=== PATIENT | female | born 1955 | race Caucasian/White ===

== ENCOUNTER 2017-09-28 10:41 | Day surgery (SDC) | payer OTHER ==
[2017-09-28] MEDS ORDERED: LACTATED RINGERS 1,000 ML IV ONE (10:47)
[2017-09-28] MEDS ORDERED: PROPOFOL 200 MG/20 ML VIAL IVP ONE (13:10)
[2017-09-28 13:14] VITALS: BP 103/62
== END 2017-09-28 10:42 | disposition home or self-care (01) ==
LOC: SDS 10:41
PROVIDERS: ATTEND Surgery
PROC: 0DBE8ZX Excision of Large Intestine, Via Natural or Artificial Opening Endoscopic, Diagnostic (ICD-10-PCS; principal; 2017-09-28 12:00)
DX: Z12.11 Encounter for screening for malignant neoplasm of colon (principal); K57.30 Diverticulosis of large intestine without perforation or abscess without bleeding; K51.40 Inflammatory polyps of colon without complications; I10 Essential (primary) hypertension; Z86.718 Personal history of other venous thrombosis and embolism; Z87.891 Personal history of nicotine dependence
CPT/HCPCS: 45380; J7120

== ENCOUNTER 2018-05-14 00:22 | Outpatient (CLI) | payer OTHER | END 2018-05-14 00:23 | disposition critical access hospital (66) | LOC: EMS 00:22 | PROVIDERS: ATTEND Surgery | DX: R56.9 Unspecified convulsions (principal) | CPT/HCPCS: A0425; A0429 ==

== ENCOUNTER 2018-05-14 00:48 | Emergency (ER) | payer OTHER ==
[2018-05-14] MEDS ORDERED: LORazepam 2 MG/ML VIAL IVP STA ×2 (00:56→01:34)
[2018-05-14 01:24] LABS: BASOPHILS # (AUTO) 0.1 10^3/uL (0.0-0.1); BASOPHILS % (AUTO) 1.3 %; EOSINOPHILS # (AUTO) 0.3 10^3/uL (0.0-0.7); EOSINOPHILS % (AUTO) 4.9 %; LYMPHOCYTES % (AUTO) 45.1 %; MEAN CORPUSCULAR HEMOGLOBIN 30.7 pg (27.0-31.0); MEAN CORPUSCULAR HGB CONC 34.5 g/dL (32.0-36.0); MEAN CORPUSCULAR VOLUME 89.1 fL (81.0-99.0); MEAN PLATELET VOLUME 7.3 fL (7.9-10.8); MONOCYTES # (AUTO) 0.5 10^3/uL (0.0-1.0); NEUTROPHILS # (AUTO) 2.8 10^3/uL (1.5-6.6); NEUTROPHILS % (AUTO) 41.7 %; PLT - PLATELET COUNT 319 10^3/uL (130-450); RED BLOOD COUNT 3.91 10^6/uL (4.20-5.40); RED CELL DISTRIBUTION WIDTH 13.5 % (12.0-15.0); WHITE BLOOD COUNT 6.7 x10^3/uL (4.8-10.8)
[2018-05-14] MEDS ORDERED: KETOROLAC 30 MG/ML VIAL IVP STA (01:34)
[2018-05-14] MEDS ORDERED: DEXAMETHASONE 10 MG/ML VIAL IVP STA (01:34)
[2018-05-14 01:37] LABS: ALBUMIN 3.6 g/dL (3.2-5.5); ALBUMIN/GLOBULIN RATIO 1.3 (1.0-2.2); BILIRUBIN,TOTAL 0.5 mg/dL (0.2-1.0); CALCIUM 8.8 mg/dL (8.5-10.3); CREATININE 0.8 mg/dL (0.4-1.0); TOTAL PROTEIN 6.4 g/dL (6.7-8.2)
[2018-05-14] MEDS ORDERED: SODIUM CHLORIDE 0.9% 500 ML IV ONE (02:42)
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
[2018-05-14] MEDS ORDERED: oxyCODONE 5 MG TABLET PO STA (06:19)
[2018-05-14 07:02] LABS: MUDS CUTOFF CONCENTRATIONS CUTOFF CONC BELOW:
[2018-05-14 07:22] LABS: BILIRUBIN,URINE NEGATIVE (NEGATIVE); GLUCOSE, URINE (UA) NEGATIVE (NEGATIVE); KETONES,URINE (UA) NEGATIVE (NEGATIVE); LEUKOCYTE ESTERASE, URINE NEGATIVE (NEGATIVE); NITRITE,URINE NEGATIVE (NEGATIVE); OCCULT BLOOD,URINE NEGATIVE (NEGATIVE); PROTEIN,URINE NEGATIVE (NEGATIVE); UROBILINOGEN,URINE 0.2 (NORMAL) E.U./dL (NORMAL)
[2018-05-14 07:25] LABS: CLARITY,URINE CLEAR (CLEAR)
[2018-05-14 07:27] LABS: AMPHETAMINE SCREEN,URINE NEGATIVE (NEGATIVE); BENZODIAZEPINES SCREEN, URINE POSITIVE (NEGATIVE); COCAINE SCREEN URINE NEGATIVE (NEGATIVE); METHADONE SCREEN, URINE NEGATIVE (NEGATIVE); METHAMPHETAMINES SCREEN, URINE NEGATIVE (NEGATIVE); OPIATE SCREEN, URINE NEGATIVE (NEGATIVE); OXYCODONE SCREEN, URINE POSITIVE (NEGATIVE); PROPOXYPHENE SCREEN, URINE NEGATIVE (NEGATIVE); TRICYCLIC ANTIDEPRESSANT,URINE NEGATIVE (NEGATIVE)
[2018-05-14 14:50] VITALS: BP 138/79
== END 2018-05-14 14:52 | disposition home or self-care (01) ==
LOC: EDUNIT# → ED 00:48
DX: R25.8 Other abnormal involuntary movements (principal); F43.9 Reaction to severe stress, unspecified; M54.9 Dorsalgia, unspecified; M25.551 Pain in right hip; Z79.899 Other long term (current) drug therapy
CPT/HCPCS: 36415; 80053; 80306; 81003; 82550; 82553; 83690; 84484; 85025; 96361; 96374; 96375; 99283; 99284; A9270; J2060; 81001; 87086

== ENCOUNTER 2018-08-10 19:15 | Emergency (ER) | payer OTHER ==
[2018-08-10] MEDS ORDERED: ONDANSETRON ODT 4 MG TABLET TL STA (19:41)
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
--- NOTE | 2018-08-10 20:17 | CT Report ---
Reason: head injury Procedure Date: 08/10/2018 Accession Number: [id number] / [id number] Procedure: CT - HEAD WO CPT Code: FULL RESULT: EXAM: CT HEAD EXAM DATE: 08/10/2018 07:59 PM. CLINICAL HISTORY: Head injury. COMPARISON: HEAD W/O 03/19/2016 6:31 AM. TECHNIQUE: Multiaxial CT images were obtained from the foramen magnum to the vertex. Reformats: Sagittal and coronal. IV contrast: None. In accordance with CT protocol optimization, one or more of the following dose reduction techniques were utilized for this exam: automated exposure control, adjustment of mA and/or KV based on patient size, or use of iterative reconstructive technique. FINDINGS: Parenchyma: No intraparenchymal hemorrhage. No evidence of mass, midline shift, or CT findings of infarction. Carter-white differentiation is distinct. Extraaxial Spaces: Normal for age. No subdural or epidural collections identified. Ventricles: Normal in size and position. Sinuses and Orbits: Imaged paranasal sinuses, orbits, and mastoids show no significant abnormality. Bones: No evidence of fracture or calvarial defect. Other: None. IMPRESSION: No acute intracranial CT abnormality. [facility]
[2018-08-10 20:32] VITALS: BP 161/98
== END 2018-08-10 20:35 | disposition home or self-care (01) ==
LOC: ED 19:15
DX: S09.90XA Unspecified injury of head, initial encounter (principal); W22.8XXA Striking against or struck by other objects, initial encounter; Y93.E9 Activity, other interior property and clothing maintenance; Y92.009 Unspecified place in unspecified non-institutional (private) residence as the place of occurrence of the external cause; I10 Essential (primary) hypertension
CPT/HCPCS: 70450; 99283; Q0162

== ENCOUNTER 2019-01-06 03:06 | Outpatient (CLI) | payer OTHER | END 2019-01-06 03:07 | disposition EMS.NT | LOC: EMS 03:06 | PROVIDERS: ATTEND Surgery | DX: Z03.89 Encounter for observation for other suspected diseases and conditions ruled out (principal) ==

== ENCOUNTER 2019-09-08 09:35 | Emergency (ER) | payer MEDICARE ==
[2019-09-08] MEDS ORDERED: TETANUS/DIPHTHERIA/PERTUSSIS 0.5 ML SYRINGE IM ONE (10:02)
[2019-09-08] MEDS ORDERED: SODIUM CHLORIDE 0.9% 1,000 ML IV ONE (10:02)
--- NOTE | 2019-09-08 10:17 | ED Physician Documentation ---
History of Present Illness - Stated complaint Stated Complaint: FAINTING - Chief complaint Chief Complaint: Neuro - History obtained from History obtained from: Patient - Additonal information Additional information: Patient comes emergency department complaining of an episode of "blacking out" on the toilet early this morning. Patient states she got up to go to the bathroom in the night, and remember sitting down on the toilet. However, she states that she does not remember what happened after that until feeling as though she was waking up again and still sitting on the toilet. Patient states she did not have any other symptoms at the time. No chest pain, shortness of breath, dizziness, focal neurologic deficits, or palpitations. She states that she got up and walked back to bed and was able to sleep through the rest of the night. She states that when she got up, she decided to come here to get "checked out". She states 1 of the main reason she is here is that she had another such loss of consciousness about a week ago and apparently had a fall at that time. She states that she sustained a laceration to her left buttock which she would like to have Steri-Stripped. Patient does not remember any details of that fall. She states that she has been having these brief syncopal episodes for about the last year. She is not exactly sure how long they last, but does not think that they last more than some seconds. She states that she has had multiple falls because of this. She denies having seen her primary care physician about this. She states that she has seen a neurologist a couple of times regarding neck pain, but has not discussed the syncope with the neurologist, either. As such, she has had no work-up for this. Patient states she has a history of hypertension but no cardiac issues. She has no history of CVA that she knows of. Records reveal that she was admitted several years ago for chest pain and thought to possibly have a PE. She was placed on Xarelto at the end of her inpatient stay and was advised to get a follow-up second opinion, as it had not been entirely clear whether the patient had PEs on her CT, and her d-dimer and lower extremity ultrasounds were negative. Patient states emphatically that she did not have a PE but does not remember following up. She states she is no longer on any anticoagulants. Patient states that other than her buttock feeling sore, she is feeling fine. No neck pain or headache. She did not fall off of the toilet. The patient denies any recent fever or other illness. No cough or sore throat. No new medications. Patient does note that she drinks alcohol approximately 3 times a week. This consists of 2 shots of vodka. She does not think she has had any blackouts in relation to the alcohol use, though she does note that she has the syncopal episodes roughly 3 times a week, as well. Patient denies drinking any alcohol yesterday. No other complaints at this time. Review of Systems Ten Systems: 10 systems reviewed and negative Constitutional: reports: Reviewed and negative Eyes: reports: Reviewed and negative Ears: reports: Reviewed and negative Nose: reports: Reviewed and negative Throat: reports: Reviewed and negative Cardiac: reports: Reviewed and negative Respiratory: reports: Reviewed and negative GI: reports: Reviewed and negative : reports: Reviewed and negative Skin: reports: Laceration (s) Musculoskeletal: reports: Reviewed and negative Neurologic: reports: Syncope Psychiatric: reports: Reviewed and negative Endocrine: reports: Reviewed and negative Immunocompromised: reports: Reviewed and negative PD PAST MEDICAL HISTORY - Past Medical History Cardiovascular: Hypertension Respiratory: None Neuro: Head injury, Tremors, Other Endocrine/Autoimmune: None GI: Other : None HEENT: None Psych: Anxiety, Bipolar disorder, Panic attacks, Post traumatic stress disorder, Claustrophobia Musculoskeletal: Osteoarthritis, Chronic back pain, Other Derm: None - Past Surgical History Past Surgical History: Yes General: Appendectomy Ortho: Spine 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 - Present Medications Home Medications: Ambulatory Orders Medication Instructions Recorded Confirmed Diclofenac Sodium Dr [Voltaren] 75 mg PO Q12H 10/20/14 09/28/17 Propranolol ER [Inderal LA] 120 mg PO BID 10/20/14 09/28/17 oxyCODONE [Roxicodone] 10 mg PO Q6H PRN 10/20/14 09/28/17 raNITIdine [Zantac] 150 mg PO Q12H 10/20/14 09/28/17 Baclofen 10 mg PO DAILY 09/28/17 09/28/17 Etodolac 200 mg PO DAILY 09/28/17 09/28/17 Melatonin 25 mg PO DAILY 09/28/17 09/28/17 Prazosin [Minipress] 1 mg PO DAILY 09/28/17 09/28/17 clonazePAM [KlonoPIN] 0.5 mg PO ONCE 09/28/17 09/28/17 Ondansetron Odt [Zofran] 4 mg TL Q6H PRN #10 tablet 08/10/18 Levofloxacin [Levaquin] 500 mg PO DAILY 7 Days #7 tablet 09/08/19 - Allergies Allergies/Adverse Reactions: Allergies Allergy/AdvReac Type Severity Reaction Status Date / Time Penicillins Allergy Hives Verified 09/08/19 09:41 sulfamethoxazole Allergy Hives Verified 09/08/19 09:41 [From Bactrim] trimethoprim [From Bactrim] Allergy Hives Verified 09/08/19 09:41 - Social History Does the pt smoke?: No Smoking Status: Never smoker Does the pt drink ETOH?: Yes Does the pt have substance abuse?: No - Immunizations Immunizations are current?: Yes Immunizations: TDAP >10years/unknown - POLST Patient has POLST: No PD ED PE NORMAL - Vitals Vital signs reviewed: Yes - General General: No acute distress, Well developed/nourished, Other (Patient is oriented to self, place, and time, but seems somewhat confused When asked certain questions about recent or past history.) - HEENT HEENT: Atraumatic, PERRL, EOMI, Moist mucous membranes - Neck Neck: Supple, no meningeal sign - Cardiac Cardiac: RRR, No murmur - Respiratory Respiratory: No respiratory distress, Clear bilaterally - Abdomen Abdomen: Soft, Non tender, Non distended - Derm Derm: Warm and dry, Other (Patient has multiple contusions about her lower back and buttocks. She has a approximately 5 cm, flap laceration involving her mid left buttock, which contains some granulation tissue. The laceration is deepened through the adipose tissue, with tracking of the inner wound along the adiposemuscle plane. No muscular laceration is noted. There is no active bleeding. No foreign bodies are noted. There is both contusion and abrasion surrounding the wound, but no evidence of infection. 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 She has clear articulation. She is able to answer most questions clearly, though seems occasionally confused, as noted above) - Psych Psych: Normal mood, Normal affect Results - Vitals Vitals: Vital Signs - 24 hr 09/08/19 09/08/19 09/08/19 09:41 10:40 12:00 Temperature 36.8 C Heart Rate 63 65 63 Respiratory 18 10 L 14 Rate Blood Pressure 166/100 H 149/72 H 142/55 H O2 Saturation 97 96 98 09/08/19 13:09 Temperature 37.1 C Heart Rate 73 Respiratory 16 Rate Blood Pressure 122/76 O2 Saturation 96 Oxygen O2 Source Room air - EKG (time done) 0942 Rate: Rate (enter#) (61) Rhythm: NSR [place]: Normal Intervals: Normal [place] QRS: Normal Ischemia: Non specific changes Computer interpretation: Disagree with computer (No T wave changes suggestive of ischemia in the lateral leads. No ST elevation in contiguous leads.) - Labs Labs: Laboratory Tests 09/08/19 09/08/19 09/08/19 09:53 09:53 09:53 WBC 10.8 RBC 4.35 Hgb 13.0 Hct 42.4 MCV 97.5 MCH 29.9 MCHC 30.7 L RDW 13.0 Plt Count 284 MPV 10.0 Neut # (Auto) 7.6 H Lymph # (Auto) 2.1 [place] # (Auto) 0.8 Eos # (Auto) 0.2 Baso # (Auto) 0.1 Absolute Nucleated RBC 0.00 Nucleated RBC % 0.0 PT INR Sodium Potassium Chloride Carbon Dioxide Anion Gap BUN Creatinine Estimated GFR (MDRD) Glucose Calcium Total Bilirubin AST ALT Alkaline Phosphatase Troponin I High Sens 3.1 Total Protein Albumin Globulin Albumin/Globulin Ratio Lipase TSH 1.55 Urine Color Urine Clarity Urine pH Ur Specific Salters Urine Protein Urine Glucose (UA) Urine Ketones Urine Occult Blood Urine Nitrite Urine Bilirubin Urine Urobilinogen Ur Leukocyte Esterase Urine RBC Urine WBC Ur Squamous Epith Cells Urine Bacteria Urine Casts Ur Microscopic Review Urine Culture Comments Urine Opiates Screen Ur Oxycodone Screen Urine Methadone Screen Ur Propoxyphene Screen Ur Barbiturates Screen Ur Tricyclics Screen Ur Phencyclidine Scrn Ur Amphetamine Screen U Methamphetamines Scrn U Benzodiazepines Scrn Urine Cocaine Screen U Cannabinoids Screen Ethyl Alcohol 09/08/19 09/08/19 09/08/19 10:48 11:17 11:17 WBC RBC Hgb Hct MCV MCH MCHC RDW Plt Count MPV Neut # (Auto) Lymph # (Auto) [place] # (Auto) Eos # (Auto) Baso # (Auto) Absolute Nucleated RBC Nucleated RBC % PT 11.4 INR 1.0 Sodium 138 Potassium 3.3 L Chloride 100 L Carbon Dioxide 29 Anion Gap 9.0 BUN 12 Creatinine 0.9 Estimated GFR (MDRD) 63 L Glucose 121 H Calcium 9.1 Total Bilirubin 1.3 H AST 55 H ALT 30 Alkaline Phosphatase 64 Troponin I High Sens Total Protein 7.2 Albumin 4.1 Globulin 3.1 Albumin/Globulin Ratio 1.3 Lipase 24 TSH Urine Color DARK YELLOW Urine Clarity CLEAR Urine pH 5.0 Ur Specific Salters >=1.030 H Urine Protein NEGATIVE Urine Glucose (UA) NEGATIVE Urine Ketones NEGATIVE Urine Occult Blood NEGATIVE Urine Nitrite POSITIVE H Urine Bilirubin NEGATIVE Urine Urobilinogen 0.2 (NORMAL) Ur Leukocyte Esterase TRACE H Urine RBC 0-5 Urine WBC 0-3 Ur Squamous Epith Cells FEW Squamous Urine Bacteria Moderate H Urine Casts 0-2 Hyaline Casts Ur Microscopic Review INDICATED Urine Culture Comments INDICATED Urine Opiates Screen NEGATIVE Ur Oxycodone Screen POSITIVE H Urine Methadone Screen NEGATIVE Ur Propoxyphene Screen NEGATIVE Ur Barbiturates Screen NEGATIVE Ur Tricyclics Screen NEGATIVE Ur Phencyclidine Scrn NEGATIVE Ur Amphetamine Screen NEGATIVE U Methamphetamines Scrn NEGATIVE U Benzodiazepines Scrn POSITIVE H Urine Cocaine Screen NEGATIVE U Cannabinoids Screen NEGATIVE Ethyl Alcohol < 5.0 - Rads (name of study) CT head Radiology: Final report received, EMP read indepedently, See rad report (Normal head CT) PD MEDICAL DECISION MAKING - ED course Complexity details: reviewed old records, reviewed results, re-evaluated patient, considered differential, d/w patient ED course: The patient was worked up with labs, EKG, and head CT initially. Her tetanus was updated. Wound was irrigated with 250 cc of saline by myself, explored to its full depth, and packed with saline gauze. The patient's work-up was negative, Except for urinalysis found to be positive for UTI. The patient was started on antibiotics in the emergency department for this. Her wound was unable to be repaired at this point, due to the period of time that had elapsed since patient sustained the wound. I discussed with the patient that in the future, she should come to the emergency department immediately instead of waiting for a week,Even if she cannot see the wound and assess its size. I spoke with JUMANA José at the [facility] where the patient's primary care physician is located. The patient's primary care physician was not available to speak, but I did relay the need for the patient to have daily wound care and for her to follow-up in an urgent manner to be assessed for possible event monitor, given her recurrent syncopal episodes over the last year. Estefanía did state that they could file homebound status on the patient, due to COVID, and that she would be set up for wound care over the weekend and moving forward from there. They would also set her up for a follow-up appointment. I have relayed all this information to the patient. We have discussed home management of the wound and symptoms, as well as usual indications for return. Patient understands the importance of taking her antibiotics for urinary tract infection. Departure - Departure Disposition: 01 Home, Self Care Clinical Impression: Laceration Syncope Qualifiers: Syncope type: unspecified Qualified Code(s): R55 - Syncope and collapse Urinary tract infection Qualifiers: Urinary tract infection type: acute cystitis Hematuria presence: without hematuria Qualified Code(s): N30.00 - Acute cystitis without hematuria Condition: Stable Instructions: Wound Care, ED Fainting Unkn Cause, ED UTI Cystitis Female Prescriptions: Levofloxacin [Levaquin] 500 mg PO DAILY 7 Days #7 tablet Comments: Your labs and CT scan look good. You do have a urinary tract infection, for which she will be started on antibiotics. Your wound, due to the amount of time that has elapsed since the injury, it cannot be repaired, as it has already started to heal. The wound will need to heal from the inside out. This will need to be packed with gauze until more healing has occurred. I have spoken with 1 of your primary care doctor's associates to let them know that you need to have wound care on a daily basis, as well as follow-up for your fainting episodes. They will be calling you this afternoon to set up wound care. This will most likely involve a home health nurse coming to your house and repacking your wound every day. Discharge Date/Time: 09/08/19 13:34
[2019-09-08 10:18] LABS: BASOPHILS # (AUTO) 0.1 10^3/uL (0.0-0.1); EOSINOPHILS # (AUTO) 0.2 10^3/uL (0.0-0.7); EOSINOPHILS % (AUTO) 1.8 %; LYMPHOCYTES # (AUTO) 2.1 10^3/uL (1.5-3.5); LYMPHOCYTES % (AUTO) 19.3 %; MEAN CORPUSCULAR HEMOGLOBIN 29.9 pg (27.0-31.0); MEAN CORPUSCULAR HGB CONC 30.7 g/dL (32.0-36.0); MEAN CORPUSCULAR VOLUME 97.5 fL (81.0-99.0); MONOCYTES # (AUTO) 0.8 10^3/uL (0.0-1.0); MONOCYTES % (AUTO) 7.3 %; NEUTROPHILS # (AUTO) 7.6 10^3/uL (1.5-6.6); NEUTROPHILS % (AUTO) 70.1 %; PLT - PLATELET COUNT 284 10^3/uL (130-450); RED BLOOD COUNT 4.35 10^6/uL (4.20-5.40); WHITE BLOOD COUNT 10.8 x10^3/uL (4.8-10.8)
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
[2019-09-08 11:09] LABS: MUDS CUTOFF CONCENTRATIONS CUTOFF CONC BELOW:
[2019-09-08 11:13] LABS: GLUCOSE, URINE (UA) NEGATIVE (NEGATIVE); KETONES,URINE (UA) NEGATIVE (NEGATIVE); LEUKOCYTE ESTERASE, URINE TRACE (NEGATIVE); NITRITE,URINE POSITIVE (NEGATIVE); OCCULT BLOOD,URINE NEGATIVE (NEGATIVE); PROTEIN,URINE NEGATIVE (NEGATIVE); UROBILINOGEN,URINE 0.2 (NORMAL) E.U./dL (NORMAL)
[2019-09-08 11:18] LABS: BILIRUBIN,URINE NEGATIVE (NEGATIVE); CLARITY,URINE CLEAR (CLEAR); ICTOTEST,URINE NEGATIVE
[2019-09-08 11:25] LABS: BENZODIAZEPINES SCREEN, URINE POSITIVE (NEGATIVE); OXYCODONE SCREEN, URINE POSITIVE (NEGATIVE)
[2019-09-08 11:26] LABS: AMPHETAMINE SCREEN,URINE NEGATIVE (NEGATIVE); COCAINE SCREEN URINE NEGATIVE (NEGATIVE); METHADONE SCREEN, URINE NEGATIVE (NEGATIVE); METHAMPHETAMINES SCREEN, URINE NEGATIVE (NEGATIVE); OPIATE SCREEN, URINE NEGATIVE (NEGATIVE); PROPOXYPHENE SCREEN, URINE NEGATIVE (NEGATIVE); TRICYCLIC ANTIDEPRESSANT,URINE NEGATIVE (NEGATIVE)
[2019-09-08 11:32] LABS: PT - PROTHROMBIN TIME 11.4 secs (9.9-12.6)
[2019-09-08 11:33] LABS: BACTERIA,URINE Moderate /HPF (None Seen); CASTS, URINE 0-2 Hyaline Casts /LPF; RBC,URINE 0-5 /HPF (0-5); SQUAMOUS EPITHELIAL CELL,UR FEW Squamous (<= Few)
[2019-09-08 11:40] LABS: ALBUMIN 4.1 g/dL (3.2-5.5); ALBUMIN/GLOBULIN RATIO 1.3 (1.0-2.2); ALKALINE PHOSPHATASE 64 IU/L (42-121); ALT ALANINE AMINOTRANSFERASE 30 IU/L (10-60); AST ASPARTATE AMINOTRANSFERASE 55 IU/L (10-42); BILIRUBIN,TOTAL 1.3 mg/dL (0.2-1.0); BUN - BLOOD UREA NITROGEN 12 mg/dL (6-20); CALCIUM 9.1 mg/dL (8.5-10.3); CARBON DIOXIDE - CO2 29 mmol/L (21-32); CHLORIDE 100 mmol/L (101-111); CREATININE 0.9 mg/dL (0.4-1.0); GLUCOSE 121 mg/dL (70-100); LIPASE 24 U/L (22-51); SODIUM 138 mmol/L (135-145); TOTAL PROTEIN 7.2 g/dL (6.7-8.2)
[2019-09-08 13:09] VITALS: BP 122/76
[2019-09-08] MEDS ORDERED: oxyCODONE 5 MG TABLET PO STA (13:12)
[2019-09-08] MEDS ORDERED: levoFLOXacin 250 MG TABLET PO STA (13:12)
== END 2019-09-08 13:34 | disposition home or self-care (01) ==
LOC: ED 09:35
DX: R55 Syncope and collapse (principal); N30.00 Acute cystitis without hematuria; S31.821A Laceration without foreign body of left buttock, initial encounter; W19.XXXA Unspecified fall, initial encounter; I10 Essential (primary) hypertension
CPT/HCPCS: 36415; 70450; 80053; 81001; 83690; 84443; 84484; 85025; 85610; 87086; 90471; 90715; 93005; 96360; 96361; 99284; A9270; 80306; 80320; 81003

== ENCOUNTER 2019-09-14 05:16 | Outpatient (CLI) | payer OTHER, MEDICARE | END 2019-09-14 05:17 | disposition critical access hospital (66) | LOC: EMS 05:16 | PROVIDERS: ATTEND Surgery | DX: R41.82 Altered mental status, unspecified (principal); V43.52XA Car driver injured in collision with other type car in traffic accident, initial encounter | CPT/HCPCS: A0425; A0429 ==

== ENCOUNTER 2019-09-14 06:03 | Emergency (ER) | payer MEDICARE, OTHER ==
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
[2019-09-14 06:23] LABS: BASOPHILS # (AUTO) 0.1 10^3/uL (0.0-0.1); BASOPHILS % (AUTO) 0.8 %; EOSINOPHILS # (AUTO) 0.2 10^3/uL (0.0-0.7); EOSINOPHILS % (AUTO) 2.5 %; HGB - HEMOGLOBIN 12.1 g/dL (12.0-16.0); LYMPHOCYTES # (AUTO) 2.2 10^3/uL (1.5-3.5); MEAN CORPUSCULAR HEMOGLOBIN 31.2 pg (27.0-31.0); MEAN CORPUSCULAR HGB CONC 32.6 g/dL (32.0-36.0); MEAN CORPUSCULAR VOLUME 95.6 fL (81.0-99.0); MEAN PLATELET VOLUME 9.2 fL (7.9-10.8); NEUTROPHILS # (AUTO) 4.8 10^3/uL (1.5-6.6); NEUTROPHILS % (AUTO) 58.2 %; PLT - PLATELET COUNT 395 10^3/uL (130-450); RED BLOOD COUNT 3.88 10^6/uL (4.20-5.40); RED CELL DISTRIBUTION WIDTH 12.6 % (12.0-15.0); WHITE BLOOD COUNT 8.3 x10^3/uL (4.8-10.8)
[2019-09-14 06:39] LABS: ACETAMINOPHEN < 10 ug/mL (10-30); ALBUMIN 3.7 g/dL (3.2-5.5); ALKALINE PHOSPHATASE 60 IU/L (42-121); ALT ALANINE AMINOTRANSFERASE 31 IU/L (10-60); AST ASPARTATE AMINOTRANSFERASE 33 IU/L (10-42); BILIRUBIN,TOTAL 0.4 mg/dL (0.2-1.0); BUN - BLOOD UREA NITROGEN 14 mg/dL (6-20); CARBON DIOXIDE - CO2 28 mmol/L (21-32); CHLORIDE 97 mmol/L (101-111); CREATININE 0.8 mg/dL (0.4-1.0); GLUCOSE 121 mg/dL (70-100); LIPASE 34 U/L (22-51); SALICYLATE < 6.0 mg/dL; SODIUM 135 mmol/L (135-145); TOTAL PROTEIN 7.3 g/dL (6.7-8.2)
--- NOTE | 2019-09-14 07:24 | CT Report ---
Reason: AMS Procedure Date: 09/14/2019 Accession Number: [id number] / [id number] Procedure: CT - HEAD WO CPT Code: Final Report FULL RESULT: EXAM: CT HEAD EXAM DATE: 09/14/2019 07:13 AM. CLINICAL HISTORY: Altered mental status. COMPARISON: CT HEAD WO 09/08/2019 10:[address] HEAD W/O 08/10/2018 7:[address] HEAD W/O 03/19/2016 6:31 AM. TECHNIQUE: Multiaxial CT images were obtained from the foramen magnum to the vertex. Reformats: Sagittal and coronal. IV contrast: None. In accordance with CT protocol optimization, one or more of the following dose reduction techniques were utilized for this exam: automated exposure control, adjustment of mA and/or KV based on patient size, or use of iterative reconstructive technique. FINDINGS: Parenchyma: No intraparenchymal hemorrhage. No evidence of mass, midline shift, or CT findings of infarction. Carter-white differentiation is distinct. Extraaxial Spaces: Normal for age. No subdural or epidural collections identified. Ventricles: Normal in size and position. Sinuses and Orbits: Imaged paranasal sinuses, orbits, and mastoids show no significant abnormality. Bones: No evidence of fracture or calvarial defect. Note is made of hyperostosis frontalis interna. Other: None. IMPRESSION: 1. No acute intracranial abnormality. No significant interval change. RADIA
[2019-09-14 09:08] LABS: MUDS CUTOFF CONCENTRATIONS CUTOFF CONC BELOW:
[2019-09-14 09:15] LABS: GLUCOSE, URINE (UA) NEGATIVE (NEGATIVE); KETONES,URINE (UA) NEGATIVE (NEGATIVE); LEUKOCYTE ESTERASE, URINE NEGATIVE (NEGATIVE); NITRITE,URINE NEGATIVE (NEGATIVE); OCCULT BLOOD,URINE NEGATIVE (NEGATIVE); PROTEIN,URINE NEGATIVE (NEGATIVE); UROBILINOGEN,URINE 0.2 (NORMAL) E.U./dL (NORMAL)
[2019-09-14 09:22] LABS: BENZODIAZEPINES SCREEN, URINE POSITIVE (NEGATIVE); BILIRUBIN,URINE NEGATIVE (NEGATIVE); CLARITY,URINE CLEAR (CLEAR); ICTOTEST,URINE NEGATIVE; OXYCODONE SCREEN, URINE POSITIVE (NEGATIVE)
[2019-09-14 09:23] LABS: AMPHETAMINE SCREEN,URINE NEGATIVE (NEGATIVE); COCAINE SCREEN URINE NEGATIVE (NEGATIVE); METHADONE SCREEN, URINE NEGATIVE (NEGATIVE); METHAMPHETAMINES SCREEN, URINE NEGATIVE (NEGATIVE); OPIATE SCREEN, URINE NEGATIVE (NEGATIVE); PROPOXYPHENE SCREEN, URINE NEGATIVE (NEGATIVE); TRICYCLIC ANTIDEPRESSANT,URINE NEGATIVE (NEGATIVE)
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
[2019-09-15 00:37] LABS: HCG UR QUAL NEGATIVE
[2019-09-15] MEDS ORDERED: LORazepam 1 MG TABLET PO STA (00:46)
[2019-09-15 04:18] VITALS: BP 145/96
== END 2019-09-15 04:25 ==
LOC: EDUNIT# → ED 06:03
DX: F23 Brief psychotic disorder (principal); F22 Delusional disorders; F31.9 Bipolar disorder, unspecified; F43.10 Post-traumatic stress disorder, unspecified; Z87.820 Personal history of traumatic brain injury; Y09 Assault by unspecified means; S31.821A Laceration without foreign body of left buttock, initial encounter; X58.XXXA Exposure to other specified factors, initial encounter; I10 Essential (primary) hypertension
CPT/HCPCS: 36415; 70450; 80053; 81003; 81025; 83690; 84443; 85025; 93005; 99283; 99285; J8499; 80306; 80307; 80320; 80329; 81001; 87086

== ENCOUNTER 2019-09-15 04:29 | Outpatient (CLI) | payer MEDICARE | END 2019-09-15 04:30 | LOC: EMS 04:29 | PROVIDERS: ATTEND Surgery | DX: F29 Unspecified psychosis not due to a substance or known physiological condition (principal) | CPT/HCPCS: A0425; A0428 ==

== ENCOUNTER 2020-01-12 06:39 | Outpatient (CLI) | payer MEDICARE | END 2020-01-12 06:40 | disposition critical access hospital (66) | LOC: EMS 06:39 | PROVIDERS: ATTEND Surgery | DX: S09.90XA Unspecified injury of head, initial encounter (principal); R46.89 Other symptoms and signs involving appearance and behavior; R41.82 Altered mental status, unspecified; X58.XXXA Exposure to other specified factors, initial encounter; Y92.003 Bedroom of unspecified non-institutional (private) residence as the place of occurrence of the external cause | CPT/HCPCS: A0425; A0429 ==

== ENCOUNTER 2020-01-12 07:25 | Emergency (ER) | payer MEDICARE ==
[2020-01-12] MEDS ORDERED: HALOPERIDOL 5 MG/ML VIAL IVP ONE ×2 (07:36→08:13)
[2020-01-12] MEDS ORDERED: SODIUM CHLORIDE 0.9% 1,000 ML IV STA (07:36)
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
[2020-01-12 08:02] LABS: BASOPHILS # (AUTO) 0.1 10^3/uL (0.0-0.1); BASOPHILS % (AUTO) 1.4 %; EOSINOPHILS # (AUTO) 0.2 10^3/uL (0.0-0.7); EOSINOPHILS % (AUTO) 2.2 %; HGB - HEMOGLOBIN 13.2 g/dL (12.0-16.0); MEAN CORPUSCULAR HEMOGLOBIN 29.5 pg (27.0-31.0); MEAN CORPUSCULAR HGB CONC 31.3 g/dL (32.0-36.0); MEAN CORPUSCULAR VOLUME 94.4 fL (81.0-99.0); MEAN PLATELET VOLUME 9.1 fL (7.9-10.8); MONOCYTES # (AUTO) 0.4 10^3/uL (0.0-1.0); MONOCYTES % (AUTO) 5.1 %; NEUTROPHILS # (AUTO) 4.6 10^3/uL (1.5-6.6); NEUTROPHILS % (AUTO) 54.8 %; PLT - PLATELET COUNT 373 10^3/uL (130-450); RED BLOOD COUNT 4.47 10^6/uL (4.20-5.40); RED CELL DISTRIBUTION WIDTH 13.7 % (12.0-15.0); WHITE BLOOD COUNT 8.5 x10^3/uL (4.8-10.8)
[2020-01-12] MEDS ORDERED: LORazepam 2 MG/ML VIAL IVP STA (08:13)
[2020-01-12 08:27] LABS: ACETAMINOPHEN < 10 ug/mL (10-30); ALBUMIN 4.2 g/dL (3.2-5.5); ALBUMIN/GLOBULIN RATIO 1.4 (1.0-2.2); ALKALINE PHOSPHATASE 54 IU/L (42-121); ALT ALANINE AMINOTRANSFERASE 15 IU/L (10-60); AST ASPARTATE AMINOTRANSFERASE 17 IU/L (10-42); BILIRUBIN,TOTAL 0.4 mg/dL (0.2-1.0); BUN - BLOOD UREA NITROGEN 11 mg/dL (6-20); CALCIUM 8.9 mg/dL (8.5-10.3); CARBON DIOXIDE - CO2 26 mmol/L (21-32); CHLORIDE 99 mmol/L (101-111); CREATININE 0.9 mg/dL (0.4-1.0); GLUCOSE 93 mg/dL (70-100); LIPASE 39 U/L (22-51); MAGNESIUM 2.2 mg/dL (1.7-2.8); SALICYLATE < 6.0 mg/dL; SODIUM 135 mmol/L (135-145); TOTAL PROTEIN 7.3 g/dL (6.7-8.2)
--- NOTE | 2020-01-12 08:59 | CT Report ---
PROCEDURE: CERVICAL SPINE WO INDICATIONS: banging head on wall TECHNIQUE: Noncontrast 3 mm thick sections acquired from the skull base to the T4 level. Sagittal and coronal r eformats were then constructed. For radiation dose reduction, the following was used: automated exp osure control, adjustment of mA and/or kV according to patient size. COMPARISON: None. FINDINGS: Image quality: Excellent. Bones: No fractures or dislocations. Visualized superior ribs are intact. Severe cervical spondylo sis. Multilevel facet hypertrophy. Multilevel uncovertebral joint hypertrophy. Multilevel bony forami nal narrowing. Soft tissues: Prevertebral soft tissues are normal in thickness. No paravertebral hematomas. No ap ical pneumothoraces. IMPRESSION: 1. No evidence of cervical fracture or dislocation. 2. Severe cervical spondylosis. Reviewed by: Jasen Aiken MD on 01/12/2020 8:58 AM PDT Approved by: Jasen Aiken MD on 01/12/2020 8:58 AM PDT Station ID: [id number]
--- NOTE | 2020-01-12 09:03 | CT Report ---
PROCEDURE: HEAD WO INDICATIONS: banging head on wall TECHNIQUE: Noncontrast 4.5 mm thick angled axial sections acquired from the foramen magnum to the vertex. For r adiation dose reduction, the following was used: automated exposure control, adjustment of mA and/or kV according to patient size. COMPARISON: None. FINDINGS: Image quality: Excellent. CSF spaces: Basal cisterns are patent. No extra-axial fluid collections. Ventricles are normal in size and shape. Brain: No midline shift. No intracranial masses or hemorrhage. Carter-white matter interface is norm al. Age-related volume loss and mild small vessel ischemic change. Skull and face: Calvarium and visualized facial bones are intact, without suspicious lesions. Hyper ostosis frontalis incidentally noted. Sinuses: Bilateral ethmoid mucosal thickening. IMPRESSION: 1. Age-related volume loss and mild small vessel ischemic change. 2. No evidence of acute stroke, hemorrhage, or mass. 3. No evidence of significant intracranial sequelae of acute trauma. 4. Chronic ethmoid sinus disease. Reviewed by: Jasen Aiken MD on 01/12/2020 9:01 AM PDT Approved by: Jasen Aiken MD on 01/12/2020 9:01 AM PDT Station ID: [id number]
[2020-01-12 09:08] LABS: MUDS CUTOFF CONCENTRATIONS CUTOFF CONC BELOW:
[2020-01-12 09:18] LABS: BILIRUBIN,URINE NEGATIVE (NEGATIVE); GLUCOSE, URINE (UA) NEGATIVE (NEGATIVE); KETONES,URINE (UA) NEGATIVE (NEGATIVE); LEUKOCYTE ESTERASE, URINE NEGATIVE (NEGATIVE); NITRITE,URINE NEGATIVE (NEGATIVE); OCCULT BLOOD,URINE NEGATIVE (NEGATIVE); PROTEIN,URINE NEGATIVE (NEGATIVE); UROBILINOGEN,URINE 0.2 (NORMAL) E.U./dL (NORMAL)
[2020-01-12 09:20] LABS: CLARITY,URINE CLEAR (CLEAR)
[2020-01-12 09:28] LABS: AMPHETAMINE SCREEN,URINE NEGATIVE (NEGATIVE); BENZODIAZEPINES SCREEN, URINE NEGATIVE (NEGATIVE); COCAINE SCREEN URINE NEGATIVE (NEGATIVE); METHADONE SCREEN, URINE NEGATIVE (NEGATIVE); METHAMPHETAMINES SCREEN, URINE NEGATIVE (NEGATIVE); OPIATE SCREEN, URINE NEGATIVE (NEGATIVE); OXYCODONE SCREEN, URINE POSITIVE (NEGATIVE); PROPOXYPHENE SCREEN, URINE NEGATIVE (NEGATIVE); TRICYCLIC ANTIDEPRESSANT,URINE NEGATIVE (NEGATIVE)
[2020-01-12] MEDS ORDERED: LACTATED RINGERS 1,000 ML IV STA (10:08)
--- NOTE | 2020-01-12 21:37 | ED Physician Documentation ---
ED Addendum - Addendum Addendum: 01/12/20 21:36 Patient was seen by the DCR, Zain, she will go home with family friends jana. She is moving to [place] tomorrow and has movers coming. They state that this does occur to her from time to time, especially when she is stressed. This may be related to her TBI as well. This document was made in part using voice recognition software. While efforts are made to proofread this document, sound alike and grammatical errors may occur. Departure - Departure Disposition: 01 Home, Self Care Clinical Impression: Acute psychosis, Stress Condition: Good Instructions: ED Altered Loc Follow-Up: Home Desir MD [Primary Care Provider] - Within 1 week Comments: Follow up with your doctor for further care. Return if you worsen.
[2020-01-12 21:42] VITALS: BP 147/92
== END 2020-01-12 21:58 | disposition home or self-care (01) ==
LOC: EDUNIT# → ED 07:25
DX: F23 Brief psychotic disorder (principal); F43.9 Reaction to severe stress, unspecified; F31.9 Bipolar disorder, unspecified; F41.9 Anxiety disorder, unspecified; S00.03XA Contusion of scalp, initial encounter; S01.01XA Laceration without foreign body of scalp, initial encounter; X83.8XXA Intentional self-harm by other specified means, initial encounter; Y92.003 Bedroom of unspecified non-institutional (private) residence as the place of occurrence of the external cause; R00.0 Tachycardia, unspecified; Z78.1 Physical restraint status; Z87.820 Personal history of traumatic brain injury; M47.812 Spondylosis without myelopathy or radiculopathy, cervical region; I10 Essential (primary) hypertension
CPT/HCPCS: 36415; 70450; 72125; 80053; 81003; 82550; 83690; 83735; 83880; 84443; 85025; 93005; 96361; 96374; 96375; 96376; 99284; 99285; J2060; J7120; 80306; 80307; 80320; 80329; 81001; 87086